=== PATIENT | female | born 1995 | race Caucasian/White ===

== ENCOUNTER 2019-12-19 15:36 | Inpatient (IN) ==
[2019-12-19 17:45] LABS: Basophils % 0.1 % (0.0-0.8); Eosinophils % 0.3 % (0.00-10.9); Hematocrit 38.4 VOL% (35.7-47.0); Hemoglobin 12.7 GM/DL (12.0-16.0); Immature Granulocytes % 0.3 %; Immature Granulocytes Absolute 0.05 #; Lymphocytes # 1.4 10*3/uL (1.4-4.0); Lymphocytes % 9.2 % (21.3-54.2); Mean Corpuscular HGB Conc 33.1 GM/DL (32-36); Mean Corpuscular Volume 87.9 FL (87-102); Mean Platelet Volume 10.8 FL (9.6-12.0); Monocytes % 5.6 % (1.7-12.7); Neutrophils % 84.5 % (38.7-73.9); Platelet Count 219 T/CUMM (130-400); Red Blood Count 4.37 MC/CUMM (3.8-5.5); Red Cell Distribution Width 13.1 % (9.3-17.3); White Blood Count 15.2 T/CUMM (4-12)
[2019-12-19] MEDS ORDERED: BUTORPHANOL 1 MG/ML VIAL ONE (18:03)
[2019-12-19] MEDS ORDERED: BUTORPHANOL 1 MG/ML VIAL IV PRN (18:04)
[2019-12-19] MEDS: ONDANSETRON 4 MG/2 ML VIAL IV PRN (18:07)
[2019-12-19] MEDS: LACTATED RINGERS 1,000 ML IV SCH (18:07)
[2019-12-19] MEDS ORDERED: hydrOXYzine HCL 25 MG/1 ML VIAL IM PRN (19:01)
[2019-12-19] MEDS ORDERED: CITRIC ACID/SODIUM CITRATE 30 ML UDCUP PO ONE (19:01)
[2019-12-19] MEDS ORDERED: LACTATED RINGERS 1,000 ML IV ONE (19:01)
[2019-12-19] MEDS ORDERED: NALOXONE 0.4 MG/ML VIAL IV PRN (19:01)
[2019-12-19] MEDS ORDERED: ePHEDrine 50 MG/ML VIAL IV PRN (19:01)
[2019-12-19] MEDS ORDERED: ONDANSETRON 4 MG/2 ML VIAL IV ONE (19:01)
[2019-12-19] MEDS ORDERED: diphenhydrAMINE 50 MG/1 ML VIAL IV PRN ×2 (19:01)
[2019-12-19] MEDS ORDERED: FAMOTIDINE 20 MG/2 ML VIAL IV ONE (19:01)
[2019-12-19] MEDS ORDERED: PROMETHAZINE 25 MG/1 ML VIAL IM ONE (19:01)
[2019-12-19] MEDS: fentaNYL 2 MCG/ROPIV 0.2% EPID 100 ML EPIDURAL SCH (20:39)
[2019-12-19 21:51] LABS: Bilirubin,Urine Negative (Negative); Blood, Urine Negative (Negative); Glucose,Urine (UA) Negative (Negative); Ketones,Urine 20 mg/dL (Negative); Mucus,Urine Occasional /LPF (Occasional); Nitrite,Urine Negative (Negative); Protein,Urine Negative; Squamous Epithelial Cell,Urine Occasional /HPF (0-10); Urine Appearance CLEAR (Clear); Urine Color Straw (Yellow); Urine Specific Gravity 1.004 (1.001-1.035); Urine Urobilinogen < 2.0 EU/DL (0.2-1.0)
[2019-12-20] MEDS: ONDANSETRON 4 MG/2 ML VIAL IV PRN ×2 (01:25→09:06)
[2019-12-20] MEDS: LACTATED RINGERS 1,000 ML IV SCH (01:27)
[2019-12-20] MEDS ORDERED: ALUMINUM/MAGNES/SIMETH MAX STR 30 ML UDCUP PO PRN (01:29)
[2019-12-20] MEDS ORDERED: OXYTOCIN/LR 20 UNIT/1,000 ML BAG IV SCH (04:00)
[2019-12-20] MEDS: fentaNYL 2 MCG/ROPIV 0.2% EPID 100 ML EPIDURAL SCH (04:34)
[2019-12-20] MEDS ORDERED: miSOPROStoL 200 MCG TABLET ONE (05:54)
[2019-12-20] MEDS ORDERED: METHYLERGONOVINE 0.2 MG/1 ML AMP ONE (05:55)
[2019-12-20] MEDS ORDERED: CARBOPROST TROMETHAMINE 250 MCG/ML AMP IM ONE (05:55)
[2019-12-20] MEDS ORDERED: LIDOCAINE 1% 50 ML VIAL ONE (07:13)
[2019-12-20] MEDS ORDERED: MEPERIDINE 50 MG/1 ML VIAL ONE (07:13)
[2019-12-20] MEDS ORDERED: SODIUM CHLORIDE 0.9% 0 ML IV ONE (07:13)
[2019-12-20] MEDS ORDERED: ONDANSETRON 4 MG/2 ML VIAL IV PRN (10:47)
[2019-12-20] MEDS ORDERED: BENZOCAINE 20%/MENTHOL 0.5% SPRAY 56 GM CAN TOP PRN (10:47)
[2019-12-20] MEDS ORDERED: oxyCODONE/ACETAMINOPHEN 5-325 MG TABLET PO PRN ×2 (10:47)
[2019-12-20] MEDS ORDERED: BISACODYL 10 MG SUPP RECTAL PRN (10:47)
[2019-12-20] MEDS ORDERED: DIPH/TET/ACEL PERT BOOSTER VACCINE 0.5 ML VIAL IM ONE (10:47)
[2019-12-20] MEDS ORDERED: RHO(D) IMMUNE GLOBULIN 300 MCG SYRINGE IM ONE (10:47)
[2019-12-20] MEDS ORDERED: LANOLIN 50% CREAM 0.3 OZ TUBE TOP PRN (10:47)
[2019-12-20] MEDS ORDERED: WITCH HAZEL PADS 100/JAR TOP PRN (10:47)
[2019-12-20] MEDS ORDERED: OXYTOCIN/LR 20 UNIT/1,000 ML BAG IV ONE (10:47)
[2019-12-20] MEDS ORDERED: ACETAMINOPHEN 325 MG TABLET PO PRN (10:47)
[2019-12-20] MEDS ORDERED: MEASLES/MUMPS/RUBELLA VACCINE 0.5 ML VIAL SUBCUT ONE (10:47)
[2019-12-20] MEDS ORDERED: HYDROCORTISONE 2.5% RECTAL CREAM 30 GM TUBE TOP PRN (10:47)
[2019-12-20 11:09] LABS: Cord Venous Blood HCO3 21.5 MMOL/L; Cord Venous Blood PCO2 31.8 MMHG; Cord Venous Blood PO2 29.8
[2019-12-20] MEDS: DOCUSATE SODIUM 100 MG CAPSULE PO SCH (20:10)
[2019-12-21] MEDS: IBUPROFEN 800 MG TABLET PO PRN ×2 (04:07→21:19)
[2019-12-21 06:39] LABS: Basophils % 0.2 % (0.0-0.8); Eosinophils # 0.3 10*3/uL (0.0-0.87); Eosinophils % 1.9 % (0.00-10.9); Hematocrit 29.5 VOL% (35.7-47.0); Immature Granulocytes % 0.6 %; Immature Granulocytes Absolute 0.09 #; Lymphocytes % 12.4 % (21.3-54.2); Mean Corpuscular HGB Conc 33.6 GM/DL (32-36); Mean Corpuscular Volume 87.8 FL (87-102); Mean Platelet Volume 10.7 FL (9.6-12.0); Monocytes % 6.4 % (1.7-12.7); Neutrophils % 78.5 % (38.7-73.9); Red Cell Distribution Width 13.6 % (9.3-17.3); White Blood Count 16.2 T/CUMM (4-12)
[2019-12-21 06:41] LABS: Hemoglobin 9.9 GM/DL (12.0-16.0); Platelet Count 158 T/CUMM (130-400); Red Blood Count 3.36 MC/CUMM (3.8-5.5)
[2019-12-21] MEDS: DOCUSATE SODIUM 100 MG CAPSULE PO SCH ×2 (09:50→21:19)
[2019-12-22 09:01] VITALS: BP 128/81
[2019-12-22] MEDS: DOCUSATE SODIUM 100 MG CAPSULE PO SCH (09:42)
== END 2019-12-22 11:50 | disposition home or self-care (01) | DRG 807 ==
LOC: N.LDOUT 15:36 → N.LD 15:40 → N.OB 12-20 14:03
PROVIDERS: ADMIT Specialist; ATTEND Specialist